=== PATIENT | male | born 1990 | race Caucasian/White ===

== ENCOUNTER 2017-06-24 13:10 | Emergency (ER) | payer SELFPAY ==
[~2017-06-24] VITALS: Ht 167.6 cm; Wt 88.0 kg
[2017-06-24 13:12] VITALS: Ht 167.6 cm; Wt 88.0 kg
[2017-06-24] MEDS ORDERED: SOD CHLORIDE 0.9% 1,000 ML IV STA (14:07)
[2017-06-24] MEDS ORDERED: morphine 4 MG/ML VIAL IV STA (14:07)
[2017-06-24] MEDS ORDERED: ONDANSETRON 4 MG INJ IV STA (14:07)
[2017-06-24] MEDS ORDERED: KETOROLAC 30 MG INJ IV STA (14:07)
--- NOTE | 2017-06-24 14:11 | ERA ---
ER Documentation Chief Complaint Date/Time DATE: 06/24/17 TIME: 14:09 Chief Complaint 10 r. side flank pain with N/V x 1 hour (SPENCER SCOTT PA-C) HPI 27 overweight otherwise healthy male presented with a chief complaint of right- sided flank pain 2 hours. Patient has not had symptoms like this before. No medications. No identifiable triggers. Also complains of nausea and vomiting. Denies fever, chills, dysuria, hematuria, previous surgeries or taking any medications to relieve the symptoms. No allergies. Nursing notes have been reviewed and are consistent with history given. (SPENCER SCOTT PA-C) ROS All systems reviewed and are negative except as per history of present illness. (SPENCER SCOTT PA-C) Medications Home Meds Active Scripts Ibuprofen* (Motrin*) 400 Mg Tab, 400 MG PO Q6, #30 TAB Prov:SPENCER SCOTT PA-C 06/24/17 Allergies Allergies: Coded Allergies: No Known Allergy (Unverified , 06/24/17) Physical Exam Vitals Vital Signs Date Time Temp Pulse Resp B/P Pulse Ox O2 Delivery O2 Flow Rate FiO2 06/24/17 13:12 98.9 85 22 117/75 98 (CHRISTIE MONTALVO PA-C) Physical Exam Const: Obese 27-year-old male in mild distress Head: Atraumatic Eyes: Normal Conjunctiva ENT: Normal External Ears, Nose and Mouth. Neck: Full range of motion..~ No meningismus. Resp: Clear to auscultation bilaterally Cardio: Regular rate and rhythm, no murmurs. Cap refill less than 2 seconds. Pulses 2+ bilaterally. Abd: Tenderness in the epigastric, right upper quadrant right lower quadrant. Soft no guarding. non distended. Normal bowel sounds. Negative Rovsing sign. Negative psoas sign. Negative Parish's sign. Skin: No petechiae or rashes Back: No midline or flank tenderness Ext: No cyanosis, or edema Neur: Awake and alert. Neurovascularly intact bilaterally. Psych: Normal Mood and Affect (SPENCER SCOTT PA-C) Result Diagram: 06/24/17 1420 06/24/17 1420 Results 24 hrs Laboratory Tests Test 06/24/17 14:20 06/24/17 15:25 White Blood Count 6.710^3/ul Red Blood Count 4.6510^6/ul Hemoglobin 13.7g/dl Hematocrit 39.1% Mean Corpuscular Volume 84.1fl Mean Corpuscular Hemoglobin 29.5pg Mean Corpuscular Hemoglobin Concent 35.0g/dl Red Cell Distribution Width 12.4% Platelet Count 89797^3/UL Mean Platelet Volume 11.1fl Neutrophils % 69.7% Lymphocytes % 20.5% Monocytes % 5.5% Eosinophils % 2.4% Basophils % 0.7% Nucleated Red Blood Cells % 0.0/100WBC Neutrophils # 4.710^3/ul Lymphocytes # 1.410^3/ul Monocytes # 0.410^3/ul Eosinophils # 0.210^3/ul Basophils # 0.110^3/ul Nucleated Red Blood Cells # 0.010^3/ul Prothrombin Time 12.8Sec Prothrombin Time Ratio 1.0 INR International Normalized Ratio 0.96 Activated Partial Thromboplast Time 23.2Sec Sodium Level 146mmol/L Potassium Level 3.9mmol/L Chloride Level 106mmol/L Carbon Dioxide Level 24mmol/L Anion Gap 20 Blood Urea Nitrogen 12mg/dl Creatinine 1.00mg/dl Glucose Level 100mg/dl Calcium Level 9.7mg/dl Total Bilirubin 0.3mg/dl Direct Bilirubin 0.00mg/dl Indirect Bilirubin 0.3mg/dl Aspartate Amino Transf (AST/SGOT) 62IU/L Alanine Aminotransferase (ALT/SGPT) 116IU/L Alkaline Phosphatase 78IU/L Total Protein 8.0g/dl Albumin 4.7g/dl Globulin 3.30g/dl Albumin/Globulin Ratio 1.42 Lipase 49U/L Urine Color YELLOW Urine Clarity CLOUDY Urine pH 5.0 Urine Specific [place] 1.024 Urine Ketones NEGATIVEmg/dL Urine Nitrite NEGATIVEmg/dL Urine Bilirubin NEGATIVEmg/dL Urine Urobilinogen NEGATIVEmg/dL Urine Leukocyte Esterase NEGATIVELeu/ul Urine Microscopic RBC 13/HPF Urine Microscopic WBC 3/HPF Urine Bacteria FEW/HPF Urine Mucus FEW/HPF Urine Hemoglobin 3+mg/dL Urine Glucose 1+mg/dL Urine Total Protein NEGATIVEmg/dl Current Medications Medications (Trade) Dose Ordered Sig/Terrence Route PRN Reason Start Time Stop Time Status Last Admin Dose Admin Sodium Chloride (NS) 1,000 ml @ 1,000 mls/hr Q1H STAT IV 06/24/17 14:07 06/24/17 15:06 DC 06/24/17 14:37 Morphine Sulfate (morphine) 4 mg ONCE STAT IV 06/24/17 14:07 06/24/17 14:10 DC 06/24/17 14:36 Ondansetron HCl (Zofran Inj) 4 mg ONCE STAT IV 06/24/17 14:07 06/24/17 14:10 DC 06/24/17 14:36 Ketorolac Tromethamine (Toradol) 30 mg ONCE STAT IV 06/24/17 14:07 06/24/17 14:10 DC 06/24/17 14:36 DIAGNOSTIC IMAGING REPORT Patient: ALEX LUTHER : 1990 Age: 27 Sex: M MR #: [id number] DOS: 06/24/17 1407 Ordering MD: SPENCER SCOTT PA-C Location: [facility] Room/Bed: PROCEDURE: CT abdomen and pelvis without IV contrast CLINICAL INDICATION: Right abdominal pain. TECHNIQUE: Axial images were obtained through the abdomen and pelvis without IV contrast. Coronal and sagittal reconstructions were obtained. Automated exposure control was utilized. DLP = 1422.7 mGy-cm. CTDiol= 21.1 mGy. One or more of the following post reduction techniques were used: - Automated exposure control. - Adjustment of the mA and/or Kv according to patient's size. - Use of iterative reconstruction technique COMPARISON: none available FINDINGS: Minimal dependent atelectasis is noted in the right lower lobe. Heart size is within normal limits. Diffuse fatty infiltration of the liver is identified. The gallbladder, pancreas, spleen and adrenals have an unremarkable noncontrast CT appearance. 2 mm nonobstructing stone is identified in the midportion of the left kidney. No obstructive uropathy is identified. The bladder is filled with a small to moderate amount of urine. The prostate and seminal vesicles are unremarkable. Air and stool are seen scattered within the colon. The appendix is normal. No dilated loops of small bowel are observed. The stomach and duodenum are unremarkable. No intra-abdominal or pelvic free fluid or fluid collections are observed. No intra-abdominal or pelvic lymphadenopathy is observed. The arterial vasculature demonstrates a normal appearance. 2 well circumscribed bony cysts are identified in the left iliac bone. Subcutaneous and muscular soft tissues surrounding the abdomen and pelvis are unremarkable. IMPRESSION: Limited evaluation for intra-abdominal inflammatory processes without IV contrast. If there is clinical concern for a intra-abdominal inflammatory process repeat exam with IV contrast is recommended. Diffuse fatty infiltration of the liver. Nonobstructing left renal stone. RPTAT: AA .Dmitriy Mora MD, MD Date Time Electronically viewed and signed by .Dmitriy Mora MD, MD on 06/24/2017 15:59 (CHRISTIE MONTALVO PA-C) Procedures/MDM MDM: 19-year-old male comes in with right-sided flank pain that goes to his right lower quadrant for the past several hours prior to arrival. This patient was signed out to me by Spencer Scott physician welder assistant. Patient presents with pain that was treated with morphine, Toradol and fluids and at this time he states his pain is 0 out of 10. He has no CVA tenderness, patient' s pain is likely due to musculoskeletal pain, as he does not have any evidence of acute abdominal process seen to explain pain. CT abdomen pelvis shows a left renal stone is 2 mm, incidental finding. He was advised that he does have fatty liver, with mild transaminitis. Other differentials considered include acute hepatobiliary process, pyelonephritis, pancreatitis, choledocholithiasis, cholelithiasis, cholecystitis, biliary colic, and among others. She does not have any gallstones. Normal white count noted and lipase is normal. He will be advised to take ibuprofen for pain and recheck with his primary care doctor. (CHRISTIE MONTALVO PA-C) Departure Diagnosis: Primary Impression: Abdominal pain Qualified Code: R10.84 - Generalized abdominal pain Condition: Stable Additional Instructions: Follow up with your PCP within the next 1-3 days for a more thorough evaluation and a possible referral to a specialist. Return the the emergency department immediately if symptoms worsen or change. If you have any questions regarding medications, ask your pharmacist or us before you leave. If any adverse reactions occur while taking your medications, discontinue the treatment and return to the emergency department immediately. Take your medications as directed, and complete the entire course of treatment. SPENCER SCOTT PA-C Jun 24, 2017 14:11 CHRISTIE MONTALVO PA-C Jun 24, 2017 17:26
[2017-06-24 14:51] LABS: BASOPHIL # 0.1 10^3/ul (0.0-0.1); BASOPHILS % 0.7 % (0.0-2.0); EOSINOPHILS # 0.2 10^3/ul (0.0-0.5); EOSINOPHILS % 2.4 % (0.0-7.0); HEMATOCRIT 39.1 % (42.0-52.0); HEMOGLOBIN 13.7 g/dl (14.0-18.0); LYMPHOCYTES # 1.4 10^3/ul (0.8-2.9); LYMPHOCYTES % 20.5 % (15.0-51.0); MEAN CORPUSCULAR HEMOGLOBIN 29.5 pg (29.0-33.0); MEAN CORPUSCULAR VOLUME 84.1 fl (82.0-101.0); MEAN PLATELET VOLUME 11.1 fl (7.4-10.4); MONOCYTE # 0.4 10^3/ul (0.3-0.9); MONOCYTES % 5.5 % (0.0-11.0); NEUTROPHIL # 4.7 10^3/ul (1.6-7.5); NEUTROPHILS % 69.7 % (39.0-77.0); PLATELET COUNT 198 10^3/UL (140-415); RED BLOOD COUNT 4.65 10^6/ul (4.70-6.10); RED CELL DISTRIBUTION WIDTH 12.4 % (11.5-14.5); WHITE BLOOD COUNT 6.7 10^3/ul (4.8-10.8)
[2017-06-24 15:03] LABS: INR 0.96; PROTIME 12.8 Sec (12.2-14.2)
[2017-06-24 15:04] LABS: PARTIAL THROMBOPLASTIN TIME 23.2 Sec (25.0-35.0)
[2017-06-24 15:08] LABS: ALBUMIN 4.7 g/dl (3.3-4.9); ALBUMIN/GLOBULIN RATIO 1.42; BILIRUBIN,INDIRECT 0.3 mg/dl (0-1.1); BILIRUBIN,TOTAL 0.3 mg/dl (0.2-1.3); CALCIUM 9.7 mg/dl (8.4-10.2); POTASSIUM 3.9 mmol/L (3.5-5.1)
[2017-06-24] MEDS ORDERED: IBUP400T22 PO (15:51)
--- NOTE | 2017-06-24 15:59 | RADRPT ---
PROCEDURE: CT abdomen and pelvis without IV contrast CLINICAL INDICATION: Right abdominal pain. TECHNIQUE: Axial images were obtained through the abdomen and pelvis without IV contrast. Coronal and sagittal reconstructions were obtained. Automated exposure control was utilized. DLP = 1422.7 mGy-cm. CTDiol= 21.1 mGy. One or more of the following post reduction techniques were used: - Automated exposure control. - Adjustment of the mA and/or Kv according to patient's size. - Use of iterative reconstruction technique COMPARISON: none available FINDINGS: Minimal dependent atelectasis is noted in the right lower lobe. Heart size is within normal limits. Diffuse fatty infiltration of the liver is identified. The gallbladder, pancreas, spleen and adrena ls have an unremarkable noncontrast CT appearance. 2 mm nonobstructing stone is identified in the midportion of the left kidney. No obstructive uropat hy is identified. The bladder is filled with a small to moderate amount of urine. The prostate and seminal vesicles are unremarkable. Air and stool are seen scattered within the colon. The appendix is normal. No dilated loops of sm all bowel are observed. The stomach and duodenum are unremarkable. No intra-abdominal or pelvic free fluid or fluid collections are observed. No intra-abdominal or pe lvic lymphadenopathy is observed. The arterial vasculature demonstrates a normal appearance. 2 well circumscribed bony cysts are identified in the left iliac bone. Subcutaneous and muscular so ft tissues surrounding the abdomen and pelvis are unremarkable. IMPRESSION: Limited evaluation for intra-abdominal inflammatory processes without IV contrast. If there is clin ical concern for a intra-abdominal inflammatory process repeat exam with IV contrast is recommended. Diffuse fatty infiltration of the liver. Nonobstructing left renal stone. RPTAT: AA .Dmitriy Mora MD, MD Date Time Electronically viewed and signed by .Dmitriy Mora MD, MD on 06/24/2017 15:59 .P/
[2017-06-24 16:55] LABS: ADD UMIC YES; UR ASCORBIC ACID NEGATIVE (NEGATIVE); UR BACTERIA FEW /HPF (NONE SEEN); UR BILIRUBIN (Dip) NEGATIVE (NEGATIVE); UR BLOOD (Dip) 3+ mg/dL (NEGATIVE); UR CLARITY CLOUDY (CLEAR); UR COLOR YELLOW (YELLOW); UR GLUCOSE (Dip) 1+ mg/dL (NEGATIVE); UR KETONES (Dip) NEGATIVE (NEGATIVE); UR LEUKOCYTE ESTERASE (Dip) NEGATIVE Leu/ul (NEGATIVE); UR MUCUS FEW /HPF (NONE SEEN); UR NITRITE (Dip) NEGATIVE (NEGATIVE); UR RBC 13 /HPF (0-5); UR SPECIFIC GRAVITY (Dip) 1.024 (1.003-1.030); UR TOTAL PROTEIN (Dip) NEGATIVE (NEGATIVE); UR UROBILINOGEN (Dip) NEGATIVE (NEGATIVE)
[2017-06-24 17:30] VITALS: BP 112/72; PULSE 71; TEMP 98.3
== END 2017-06-24 17:30 | disposition home or self-care (01) ==
LOC: FTE 13:10
DX: R10.84 Generalized abdominal pain (principal); R11.2 Nausea with vomiting, unspecified
CPT/HCPCS: 36415; 74176; 80053; 81001; 83690; 85025; 85610; 85730; 96374; 96375; 99285; J1885; J2270; J2405; J7030